=== PATIENT | male | born 1985 | race Hispanic/Latino ===

== ENCOUNTER 2020-12-07 18:53 | Emergency (ER) | payer SELFPAY ==
[2020-12-07 20:00] VITALS: BP 118/68
--- NOTE | 2020-12-07 20:05 | Event Note ---
ED Screening Note Date of service: 12/07/20 Time: 20:05 ED Screening Note: 35-year-old male patient presents to the emergency department complaints of fever, diaphoresis, fatigue, generalized weakness, body aches, and nontraumatic headache starting 2 days ago. No known sick contacts. No current steroid or antibiotic use. Tachycardia noted in triage. General: Awake, appropriately interactive, no acute distress. Neck: Supple. Full range of motion intact. Cardiovascular: Normal peripheral perfusion. Pulmonary: No respiratory distress. Patient is speaking normally without use of accessory muscles. Skin: No apparent rashes or lesions. Neurological: No facial asymmetry. Speech is clear. Follows commands. Patient is alert and oriented. Musculoskeletal: Moves all four extremities spontaneously with normal range of motion. Psych: Cooperative. Appropriate mood and affect. I have greeted and performed a focused rapid initial assessment of this patient. A comprehensive ED assessment and evaluation of the patient, analysis of all test results, and completion of the medical decision-making process will be conducted by additional ED providers. This initial assessment/diagnostic orders/clinical plan/treatment(s) is/are subject to change based on patients health status, clinical progression and re-assessment. Further treatment and workup at subsequent clinical provider's discretion. Patient/guardian urged not to elope from the ED as their condition may be serious if not clinically assessed and managed.
[2020-12-07 20:25] LABS: Basophils % (Auto) 1.4 % (0.0-1.8); Eosinophils % (Auto) 0.2 % (0.0-4.3); Hematocrit 44.2 % (35.5-45.6); Lymphocytes # (Auto) 0.5 K/mm3 (1.2-5.4); Lymphocytes % (Auto) 19.6 % (13.4-35.0); Mean Corpuscular HGB Conc 34 % (32-34); Mean Corpuscular Volume 85 fl (84-94); Monocytes # (Auto) 0.3 K/mm3 (0.0-0.8); Monocytes % (Auto) 10.2 % (0.0-7.3); Platelet Count 126 K/mm3 (140-440); Red Blood Count 5.19 M/mm3 (3.65-5.03); Red Cell Distribution Width 13.3 % (13.2-15.2)
--- NOTE | 2020-12-07 20:30 | XRay Report ---
CHEST 2 VIEWS INDICATION / CLINICAL INFORMATION: dizziness/fatigue/tachycardia. COMPARISON: None available. FINDINGS: SUPPORT DEVICES: None. HEART / MEDIASTINUM: No significant abnormality. LUNGS / PLEURA: No significant pulmonary or pleural abnormality. No pneumothorax. ADDITIONAL FINDINGS: No significant additional findings. IMPRESSION: 1. No acute findings. Signer Name: Oscar Morrison MD Signed: 12/07/2020 8:25 PM Workstation Name: [id number]
[2020-12-07 20:48] LABS: Alanine Aminotransferase 43 units/L (7-56); Albumin 3.6 g/dL (3.9-5); BUN/Creatinine Ratio 8; Blood Urea Nitrogen 7 mg/dL (9-20); Calcium 8.4 mg/dL (8.4-10.2); Hemolysis Index 11
[2020-12-07] MEDS ORDERED: AZITHROMYCIN 250 MG TAB PO ONE (21:10)
[2020-12-07] MEDS ORDERED: ACETAMINOPHEN 500 MG TAB PO ONE (21:10)
[2020-12-07] MEDS ORDERED: SODIUM CHLORIDE 0.9% 1000 ML 1,000 ML IV ONE (21:10)
--- NOTE | 2020-12-07 21:11 | Emergency Department Report ---
ED General Adult HPI - General Chief complaint: Upper Respiratory Infection Stated complaint: BODY ACHES Source: patient Mode of arrival: Ambulatory Limitations: No Limitations - History of Present Illness Initial comments: Pt is a 35-year-old male patient presents to the emergency department complaints of fever, diaphoresis, fatigue, generalized weakness, body aches, and nontraumatic headache starting 2 days ago. No known sick contacts. No current steroid or antibiotic use. pt denies suspicious contacts , pt is tolerating po intake without vomiting, does endorse nausea. - Related Data Previous Rx's Medication Instructions Recorded Last Taken Type Acetaminophen [Acetaminophen TAB] 1,000 mg PO Q6HR PRN #30 tablet 12/07/20 Unknown Rx Albuterol Mdi (or & Nicu Only) 2 puff IH QID PRN #8.5 gram 12/07/20 Unknown Rx [ProAir HFA Inhaler] Azithromycin 500 mg PO DAILY #5 tablet 12/07/20 Unknown Rx dexAMETHasone [Decadron] 4 mg PO BID 3 Days #6 tablet 12/07/20 Unknown Rx Allergies Allergy/AdvReac Type Severity Reaction Status Date / Time No Known Allergies Allergy Unverified 12/07/20 20:00 ED Review of Systems ROS: Stated complaint: BODY ACHES Other details as noted in HPI Constitutional: chills, malaise Eyes: denies: eye pain, eye discharge, vision change ENT: throat pain, congestion. denies: ear pain Respiratory: cough (thick yellow ). denies: shortness of breath, wheezing Cardiovascular: chest pain (right anterior lateral chest wall pain with cough ) Endocrine: no symptoms reported Gastrointestinal: nausea, diarrhea. denies: abdominal pain, vomiting, constipation, melena Genitourinary: denies: urgency, dysuria, frequency, hematuria, discharge Musculoskeletal: denies: back pain, joint swelling, arthralgia Skin: denies: rash, lesions Neurological: headache. denies: numbness, paresthesias, confusion, vertigo Psychiatric: denies: anxiety, depression Hematological/Lymphatic: as per HPI ED Past Medical Hx - Past Medical History Previous Medical History?: No - Surgical History Past Surgical History?: No - Medications Home Medications: Home Medications Medication Instructions Recorded Confirmed Last Taken Type Acetaminophen [Acetaminophen TAB] 1,000 mg PO Q6HR PRN #30 tablet 12/07/20 Unknown Rx Albuterol Mdi (or & Nicu Only) 2 puff IH QID PRN #8.5 gram 12/07/20 Unknown Rx [ProAir HFA Inhaler] Azithromycin 500 mg PO DAILY #5 tablet 12/07/20 Unknown Rx dexAMETHasone [Decadron] 4 mg PO BID 3 Days #6 tablet 12/07/20 Unknown Rx ED Physical Exam - General Limitations: No Limitations General appearance: alert - Head Head exam: Present: normocephalic, normal inspection - Eye Eye exam: Present: PERRL, EOMI Pupils: Present: normal accommodation - ENT ENT exam: Present: normal orophraynx, mucous membranes moist, TM's normal bilaterally, normal external ear exam - Neck Neck exam: Present: normal inspection, full ROM. Absent: tenderness, meningismus, lymphadenopathy - Respiratory Respiratory exam: Present: chest wall tenderness (right anterior lateral ). Absent: wheezes, rales, rhonchi, stridor - Cardiovascular Cardiovascular Exam: Present: regular rate, normal rhythm, normal heart sounds. Absent: systolic murmur, diastolic murmur, rubs, gallop - GI/Abdominal GI/Abdominal exam: Present: soft, normal bowel sounds. Absent: distended, tenderness, guarding, rebound, rigid, bruit, hernia - Rectal Rectal exam: Present: deferred - Extremities Exam Extremities exam: Present: normal inspection, full ROM, normal capillary refill. Absent: tenderness - Back Exam Back exam: Present: normal inspection, full ROM. Absent: tenderness, CVA tenderness (R), CVA tenderness (L) - Neurological Exam Neurological exam: Present: alert, oriented X3, CN II-XII intact, normal gait - Expanded Neurological Exam Expanded Patient oriented to: Present: person, place, time Motor strength exam: RUE: 5, LUE: 5, RLE: 5, LLE: 5 Best Eye Response (Carmel): (4) open spontaneously Best Motor Response (Carmel): (6) obeys commands Best Verbal Response (Carmel): (5) oriented Maikol Total: 15 - Psychiatric Psychiatric exam: Present: normal affect, normal mood - Skin Skin exam: Present: warm, dry, intact, normal color. Absent: rash ED Course Vital Signs 12/07/20 12/07/20 19:58 21:47 Temperature 98.2 F Pulse Rate 107 H Respiratory 18 18 Rate Blood Pressure 118/68 [Right] O2 Sat by Pulse 95 Oximetry ED Medical Decision Making - Lab Data Result diagrams: 12/07/20 20:10 12/07/20 20:10 - Radiology Data Radiology results: report reviewed, image reviewed Ordering Physician: SEDRICK WILLARD Date of Service: 12/07/20 Procedure(s): XR chest routine 2V Accession Number(s): [id number] cc: SEDRICK WILLARD Fluoro Time In Minutes: CHEST 2 VIEWS INDICATION / CLINICAL INFORMATION: dizziness/fatigue/tachycardia. COMPARISON: None available. FINDINGS: SUPPORT DEVICES: None. HEART / MEDIASTINUM: No significant abnormality LUNGS / PLEURA: No significant pulmonary or pleural abnormality. No pn eumothorax. ADDITIONAL FINDINGS: No significant additional findings. IMPRESSION: 1. No acute findings. Signer Name: Oscar Dumont MD Signed: 12/07/2020 8:25 PM Workstation Name: [id number] Transcribed By: CW Dictated By: ZEKE DUMONT MD Electronically Authenticated By: ZEKE DUMONT MD Signed Date/Time: 12/07/202024 DD/ 24 TD/TT: - Medical Decision Making Patient advises symptoms are improved. Chest x-ray is normal no infiltrates no opacities. Patient is currently tolerating p.o. intake without nausea vomiting. Patient will be DC'd to home, with prescriptions, will hydrate as directed, given PUI instructions, patient verbalized agreement and understanding with discharge plan will follow up with primary care doctor in 2 to 3 days. Patient is currently alert oriented x3 amatory with steady gait with no acute distress at this time. Critical care attestation.: If time is entered above; I have spent that time in minutes in the direct care of this critically ill patient, excluding procedure time. ED Disposition Clinical Impression: Bronchitis, Person under investigation for COVID-19 Disposition: DC-01 TO HOME OR SELFCARE Is pt being admited?: No Does the pt Need Aspirin: No Condition: Stable Instructions: Chronic Bronchitis (ED), Viral Respiratory Infection Test, COVID- 19 Additional Instructions: quarantine for next 7-10 days as directed, hydrate as directed, take medications as directed , return to emergency if symptoms worsen. follow with your doctor in 2-3 days. Prescriptions: Acetaminophen [Acetaminophen TAB] 1,000 mg PO Q6HR PRN #30 tablet PRN Reason: pain fever Azithromycin 500 mg PO DAILY #5 tablet dexAMETHasone [Decadron] 4 mg PO BID 3 Days #6 tablet Albuterol Mdi (or & Nicu Only) [ProAir HFA Inhaler] 2 puff IH QID PRN #8.5 gram PRN Reason: Shortness Of Breath Referrals: ESTRELLITA COVINGTON MD [Staff Physician] - 3-5 Days Forms: Work/School Release Form(ED) Time of Disposition: 23:18
== END 2020-12-07 23:30 | disposition home or self-care (01) ==
LOC: ED 18:53
DX: J40 Bronchitis, not specified as acute or chronic (principal); Z20.822 Contact with and (suspected) exposure to COVID-19; Z79.899 Other long term (current) drug therapy
CPT/HCPCS: 36415; 71046; 80053; 82550; 83735; 84484; 85025; 96360; 99284; J7030

== ENCOUNTER 2020-12-23 14:14 | Inpatient (IN) | payer OTHER, SELFPAY ==
[2020-12-23 16:05] LABS: Basophils % (Auto) 0.3 % (0.0-1.8); Eosinophils # (Auto) 0.1 K/mm3 (0.0-0.4); Eosinophils % (Auto) 0.9 % (0.0-4.3); Hematocrit 36.1 % (35.5-45.6); Hemoglobin 12.6 gm/dl (11.8-15.2); Lymphocytes # (Auto) 1.9 K/mm3 (1.2-5.4); Mean Corpuscular HGB Conc 35 % (32-34); Mean Corpuscular Volume 85 fl (84-94); Monocytes % (Auto) 7.4 % (0.0-7.3); Platelet Count 285 K/mm3 (140-440); Red Blood Count 4.24 M/mm3 (3.65-5.03); Red Cell Distribution Width 13.1 % (13.2-15.2)
[2020-12-23 16:19] LABS: Alanine Aminotransferase 63 units/L (7-56); BUN/Creatinine Ratio 25; Blood Urea Nitrogen 20 mg/dL (9-20); Calcium 8.6 mg/dL (8.4-10.2); Hemolysis Index 0
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
--- NOTE | 2020-12-23 17:18 | Vascular Lab Report ---
VL venous duplex LE RT INDICATION / CLINICAL INFORMATION: swelling and pain. TECHNIQUE: Duplex doppler imaging was performed using venous compression and other maneuvers. COMPARISON: None available. FINDINGS/IMPRESSION: There is a deep venous thrombosis seen within the proximal superficial femoral vein. Otherwise, no th rombus is seen in the right lower extremity. Signer Name: Norm Carter MD Signed: 12/23/2020 5:13 PM Workstation Name: [id number]
[2020-12-23] MEDS ORDERED: ENOXAPARIN 100 MG/1 ML INJ SUB-Q STA (17:30)
[2020-12-23] MEDS ORDERED: ACETAMINOPHEN 500 MG TAB PO ONE (17:30)
[2020-12-23] MEDS ORDERED: LACTATED RINGERS 2,000 ML IV ONE (17:30)
[2020-12-23] MEDS ORDERED: diazePAM 10 MG/2 ML SYRINGE IV ONE (17:30)
[2020-12-23] MEDS ORDERED: CLINDAMYCIN 600 MG/50 mL 600 MG/50 ML BAG IV ONE (18:34)
[2020-12-23 18:50] LABS: INR 1.08 (0.87-1.13)
[2020-12-23 18:51] LABS: Partial Thromboplastin Time 36.2 Sec. (24.2-36.6)
[2020-12-23 19:06] LABS: Hepatitis B Surface Antigen Non-Reactive (Negative); Hepatitis C Virus Antibody Non-Reactive (NonReactive)
--- NOTE | 2020-12-23 19:39 | Cat Scan Report ---
CTA CHEST WITH CONTRAST INDICATION / CLINICAL INFORMATION: tachycardia, fever, hemoptysis, dvt. TECHNIQUE: Axial CT images were obtained through the chest after injection of 100 mL Omnipaque 350 IV contrast. 3 plane MIP and/or 3D reconstructions were produced. All CT scans at this location are per formed using CT dose reduction for ALARA by means of automated exposure control. COMPARISON: None available. FINDINGS: PULMONARY ARTERIES: No pulmonary emboli. THORACIC AORTA: No significant abnormality. HEART: No significant abnormality. CORONARY ARTERY CALCIFICATION: None. MEDIASTINUM / ROBERTH: No significant abnormality. PLEURA: No pleural effusion. No pneumothorax. LUNGS: No acute air space or interstitial disease. ADDITIONAL FINDINGS: None. UPPER ABDOMEN: No acute findings. SKELETAL STRUCTURES: No significant osseous abnormality. IMPRESSION: 1. No CT evidence for pulmonary embolism. 2. No acute findings. Signer Name: Taylor Ceja MD Signed: 12/23/2020 7:35 PM Workstation Name: [id number]
[2020-12-23] MEDS ORDERED: HYDROmorphone 1 MG/1 ML INJ IV ONE (20:31)
[2020-12-23] MEDS: HYDROmorphone 1 MG/1 ML INJ IV PRN (21:48)
[2020-12-23] MEDS ORDERED: diphenhydrAMINE 50 MG/ML VIAL IV ONE (23:44)
[2020-12-24 00:15] LABS: Bilirubin,Urine NEG (Negative); Blood,Urine NEG (Negative); Color,Urine Yellow (Yellow); Mucus,Urine FEW /HPF; Protein,Urine <15 mg/dL mg/dL (Negative); Urobilinogen,Urine < 2.0 mg/dL (<2.0)
[2020-12-24 00:24] LABS: Amphetamine Screen,Urine PRESUMPTIVE POSITIVE; Benzodiazepines Screen,Urine PRESUMPTIVE NEGATIVE; Cannabinoid Screen,Urine PRESUMPTIVE NEGATIVE; Cocaine Screen,Urine PRESUMPTIVE NEGATIVE; Methadone Screen,Urine PRESUMPTIVE NEGATIVE; Opiate Screen,Urine PRESUMPTIVE NEGATIVE
--- NOTE | 2020-12-24 00:36 | History and Physical Report ---
History of Present Illness Date of examination: 12/23/20 Date of admission: 12/23/20 20:53 Chief complaint: Redness of the right lower extremity History of present illness: 35-year-old male with history of asthma and methamphetamine use comes in for right lower extremity redness pain and swelling. Patient also has a small ulcer on the penis for the last 1 or 2 weeks. Patient is a poor historian. Patient has male sex to male(apparently homosexuality should not be used). Patient noticed 2 small ulcers near the gonzales of the glans penis. Penis ulcers. No fever or chills. His main complaint is redness of right lower extremity associated with pain. No fever or chills. No penile discharge. Redness started 1 day ago. - Past Medical History Previous Medical History?: No - Surgical History Past Surgical History?: No - Social History Smoking Status: Current Every Day Smoker - Medications Home Medications: Home Medications Medication Instructions Recorded Confirmed Last Taken Type Acetaminophen [Acetaminophen TAB] 1,000 mg PO Q6HR PRN #30 tablet 12/07/20 Unknown Rx Albuterol Mdi (or & Nicu Only) 2 puff IH QID PRN #8.5 gram 12/07/20 Unknown Rx [ProAir HFA Inhaler] Azithromycin 500 mg PO DAILY #5 tablet 12/07/20 Unknown Rx dexAMETHasone [Decadron] 4 mg PO BID 3 Days #6 tablet 12/07/20 Unknown Rx Review of Systems ROS: Stated complaint: RIGHT LEG INJURY Other details as noted in HPI Constitutional: fever, malaise, weakness Eyes: denies: eye discharge ENT: congestion Respiratory: cough, other (Hemoptysis) Cardiovascular: denies: chest pain Gastrointestinal: denies: nausea, vomiting, hematemesis, melena, hematochezia Genitourinary: Chan[place] on the penis Musculoskeletal: arthralgia, myalgia Skin: rash, right lower extremity Neurological: denies: headache, confusion, abnormal gait Psychiatric: anxiety Hematological/Lymphatic: denies: easy bleeding Medications and Allergies Allergies Allergy/AdvReac Type Severity Reaction Status Date / Time No Known Allergies Allergy Unverified 12/07/20 20:00 Home Medications Medication Instructions Recorded Confirmed Last Taken Type Acetaminophen [Acetaminophen TAB] 1,000 mg PO Q6HR PRN #30 tablet 12/07/20 Unknown Rx Albuterol Mdi (or & Nicu Only) 2 puff IH QID PRN #8.5 gram 12/07/20 Unknown Rx [ProAir HFA Inhaler] Azithromycin 500 mg PO DAILY #5 tablet 12/07/20 Unknown Rx dexAMETHasone [Decadron] 4 mg PO BID 3 Days #6 tablet 12/07/20 Unknown Rx Active Meds: Active Medications Hydromorphone HCl (Hydromorphone 1 Mg/1 Ml Inj) 0.5 mg IV Q3H PRN PRN Reason: Pain , Severe (7-10) Last Admin: 12/23/20 21:48 Dose: 0.5 mg Documented by: Exam - Constitutional Vitals: Temp Pulse Resp BP Pulse Ox 98.7 F 98 H 13 106/66 100 12/24/20 00:23 12/23/20 23:02 12/23/20 23:02 12/23/20 23:02 12/23/20 23:02 General appearance: Present: no acute distress, well-nourished - EENT Eyes: Present: PERRL ENT: hearing intact, clear oral mucosa - Neck Neck: Present: supple, normal ROM - Respiratory Respiratory effort: normal Respiratory: bilateral: CTA - Cardiovascular Heart rate: 78 Rhythm: regular Heart Sounds: Present: S1 & S2. Absent: rub, click - Extremities Extremities: no ischemia, pulses symmetrical, No edema Extremity abnormal: erythema (Right lower extremity from ankle up to the mid calf region. No ulcers.) Peripheral Pulses: within normal limits - Abdominal General gastrointestinal: Present: soft, non-tender, non-distended, normal bowel sounds Male genitourinary: Present: asymmetrical (Penile chancres x2. Painless.) - Integumentary Integumentary: Present: clear, warm, dry - Musculoskeletal Musculoskeletal: gait normal, strength equal bilaterally - Psychiatric Psychiatric: appropriate mood/affect, intact judgment & insight - Neurologic Neurologic: CNII-XII intact, moves all extremities Results - Labs CBC & Chem 7: 12/23/20 15:32 12/23/20 15:32 Labs: Laboratory Last Values WBC 13.5 K/mm3 (4.5-11.0) H 12/23/20 15:32 RBC 4.24 M/mm3 (3.65-5.03) 12/23/20 15:32 Hgb 12.6 gm/dl (11.8-15.2) 12/23/20 15:32 Hct 36.1 % (35.5-45.6) 12/23/20 15:32 MCV 85 fl (84-94) 12/23/20 15:32 MCH 30 pg (28-32) 12/23/20 15:32 MCHC 35 % (32-34) H 12/23/20 15:32 RDW 13.1 % (13.2-15.2) L 12/23/20 15:32 Plt Count 285 K/mm3 (140-440) 12/23/20 15:32 Lymph % (Auto) 14.0 % (13.4-35.0) 12/23/20 15:32 [place] % (Auto) 7.4 % (0.0-7.3) H 12/23/20 15:32 Eos % (Auto) 0.9 % (0.0-4.3) 12/23/20 15:32 Baso % (Auto) 0.3 % (0.0-1.8) 12/23/20 15:32 Lymph # (Auto) 1.9 K/mm3 (1.2-5.4) 12/23/20 15:32 [place] # (Auto) 1.0 K/mm3 (0.0-0.8) H 12/23/20 15:32 Eos # (Auto) 0.1 K/mm3 (0.0-0.4) 12/23/20 15:32 Baso # (Auto) 0.0 K/mm3 (0.0-0.1) 12/23/20 15:32 Seg Neutrophils % 77.4 % (40.0-70.0) H 12/23/20 15:32 Seg Neutrophils # 10.5 K/mm3 (1.8-7.7) H 12/23/20 15:32 PT 13.8 Sec. (12.2-14.9) 12/23/20 17:52 INR 1.08 (0.87-1.13) 12/23/20 17:52 APTT 36.2 Sec. (24.2-36.6) 12/23/20 17:52 Sodium 131 mmol/L (137-145) L 12/23/20 15:32 Potassium 4.1 mmol/L (3.6-5.0) 12/23/20 15:32 Chloride 95.3 mmol/L (98-107) L 12/23/20 15:32 Carbon Dioxide 26 mmol/L (22-30) 12/23/20 15:32 Anion Gap 14 mmol/L 12/23/20 15:32 BUN 20 mg/dL (9-20) 12/23/20 15:32 Creatinine 0.8 mg/dL (0.8-1.3) 12/23/20 15:32 Estimated GFR > 60 ml/min 12/23/20 15:32 BUN/Creatinine Ratio 25 % 12/23/20 15:32 Glucose 82 mg/dL (75-100) 12/23/20 15:32 Lactic Acid 0.80 mmol/L (0.7-2.0) 12/23/20 15:32 Calcium 8.6 mg/dL (8.4-10.2) 12/23/20 15:32 Magnesium 1.80 mg/dL (1.7-2.3) 12/23/20 16:59 Total Bilirubin 0.90 mg/dL (0.1-1.2) 12/23/20 15:32 AST 30 units/L (5-40) 12/23/20 15:32 ALT 63 units/L (7-56) H 12/23/20 15:32 Alkaline Phosphatase 95 units/L (35-129) 12/23/20 15:32 Total Creatine Kinase 233 units/L (55-170) H 12/23/20 16:59 Total Protein 7.0 g/dL (6.3-8.2) 12/23/20 15:32 Albumin 4.0 g/dL (3.9-5) 12/23/20 15:32 Albumin/Globulin Ratio 1.3 % 12/23/20 15:32 TSH 0.847 mlU/mL (0.270-4.200) 12/23/20 17:52 Urine Color Yellow (Yellow) 12/23/20 23:59 Urine Turbidity Clear (Clear) 12/23/20 23:59 Urine pH 6.0 (5.0-7.0) 12/23/20 23:59 Ur Specific [place] 1.029 (1.003-1.030) 12/23/20 23:59 Urine Protein <15 mg/dl mg/dL (Negative) 12/23/20 23:59 Urine Glucose (UA) Neg mg/dL (Negative) 12/23/20 23:59 Urine Ketones Tr mg/dL (Negative) 12/23/20 23:59 Urine Blood Neg (Negative) 12/23/20 23:59 Urine Nitrite Neg (Negative) 12/23/20 23:59 Urine Bilirubin Neg (Negative) 12/23/20 23:59 Urine Urobilinogen < 2.0 mg/dL (<2.0) 12/23/20 23:59 Ur Leukocyte Esterase Neg (Negative) 12/23/20 23:59 Urine WBC (Auto) 1.0 /HPF (0.0-6.0) 12/23/20 23:59 Urine RBC (Auto) 1.0 /HPF (0.0-6.0) 12/23/20 23:59 Urine Mucus Few /HPF 12/23/20 23:59 Salicylates < 0.3 mg/dL (2.8-20.0) L 12/23/20 17:52 Acetaminophen 5.0 ug/mL (10.0-30.0) L 12/23/20 17:52 Ur Amphetamines Screen Presumptive positive 12/23/20 23:59 Syphilis IgG Antibody Nonreactive (NonReactive) 12/23/20 17:52 Hepatitis A IgM Ab Non-reactive (NonReactive) 12/23/20 17:52 Hep Bs Antigen Non-reactive (Negative) 12/23/20 17:52 Hep B Core IgM Ab Non-reactive (NonReactive) 12/23/20 17:52 Hepatitis C Antibody Non-reactive (NonReactive) 12/23/20 17:52 Microbiology: Microbiology 12/23/20 17:49 Peripheral/Venous Blood Culture - Preliminary Culture in Progress 12/23/20 17:52 Peripheral/Venous Blood Culture - Preliminary Culture in Progress Assessment and Plan Advance Directives: Yes (Full code) VTE prophylaxis?: Chemical Plan of care discussed with patient/family: Yes - Patient Problems (1) Cellulitis of right lower extremity Current Visit: Yes Status: Acute Plan to address problem: Patient initiated on ceftriaxone (2) Chancre Current Visit: Yes Status: Acute Plan to address problem: 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
[2020-12-24] MEDS ORDERED: oxyCODONE /ACETAMINOPHEN 5-325MG TAB PO PRN (00:44)
[2020-12-24] MEDS ORDERED: METOCLOPRAMIDE 10 MG/2 ML INJ IV PRN (00:44)
[2020-12-24] MEDS ORDERED: ACETAMINOPHEN 325 MG TAB PO PRN (00:44)
[2020-12-24] MEDS ORDERED: ONDANSETRON 4 MG/2 ML INJ IV PRN (00:44)
[2020-12-24] MEDS: HYDROmorphone 1 MG/1 ML INJ IV PRN (00:55)
[2020-12-24 01:37] LABS: Basophils # (Auto) 0.1 K/mm3 (0.0-0.1); Basophils % (Auto) 0.5 % (0.0-1.8); Eosinophils # (Auto) 0.2 K/mm3 (0.0-0.4); Eosinophils % (Auto) 2.3 % (0.0-4.3); Hematocrit 36.4 % (35.5-45.6); Hemoglobin 12.5 gm/dl (11.8-15.2); Lymphocytes # (Auto) 2.6 K/mm3 (1.2-5.4); Lymphocytes % (Auto) 24.2 % (13.4-35.0); Mean Corpuscular HGB Conc 34 % (32-34); Mean Corpuscular Volume 86 fl (84-94); Monocytes # (Auto) 0.9 K/mm3 (0.0-0.8); Monocytes % (Auto) 8.4 % (0.0-7.3); Platelet Count 291 K/mm3 (140-440); Red Blood Count 4.26 M/mm3 (3.65-5.03); Red Cell Distribution Width 13.7 % (13.2-15.2)
[2020-12-24 01:57] LABS: Alanine Aminotransferase 52 units/L (7-56); Albumin 3.6 g/dL (3.9-5); BUN/Creatinine Ratio 18; Blood Urea Nitrogen 14 mg/dL (9-20); Calcium 8.8 mg/dL (8.4-10.2); Hemolysis Index 15
[2020-12-24] MEDS: FAMOTIDINE 20 MG TAB PO SCH ×2 (10:49→21:07)
--- NOTE | 2020-12-24 11:44 | Progress Note ---
Assessment and Plan Assessment and plan: --PUI/high suspicion for Covid Current Visit: Yes Status: Acute Plan to address problem: isolation, gonzales PCR requested, ID already consulted. Patient had low-grade fever high risk --Right lower extremity DVT; Current Visit: Yes Status: Acute Plan to address problem: Lovenox 1 mg/kg body weight every 12 hours Will transition to Eliquis once patient is more stable Elevate the limb. CTA negative for PE --Sepsis secondary to cellulitis RLE Current Visit: Yes Status: Acute. Plan to address problem: Tachycardia, fever, leukocytosis, cellulitis IV antibiotics, elevate the limb, follow cultures -- Cellulitis of right lower extremity Current Visit: Yes Status: Acute Plan to address problem: IV antibiotics elevate the limb Follow cultures -- Chancre/STD Current Visit: Yes Status: Acute Plan to address problem: Follow work-up RPR and HIV requested Management per ID -- Methamphetamine use Current Visit: Yes Status: Acute Plan to address problem: Advised to quit recreational drug use --DVT prophylaxis Current Visit: Yes Status: Acute Plan to address problem: On Lovenox[patient has DVT] History Interval history: I have seen and examined the patient at the bedside Patient's chart and medications reviewed Patient complains of leg pain and swelling Vital signs noted Hospitalist Physical - Constitutional Vitals: Temp Pulse Resp BP Pulse Ox 98.6 F 96 H 18 108/65 99 12/24/20 03:29 12/24/20 03:29 12/24/20 03:29 12/24/20 03:29 12/24/20 03:29 General appearance: Present: mild distress, well-nourished - EENT Eyes: Present: PERRL, EOM intact - Neck Neck: Present: supple, normal ROM - Respiratory Respiratory effort: normal Respiratory: bilateral: diminished, negative: rales, rhonchi, wheezing - Cardiovascular Rhythm: regular Heart Sounds: Present: S1 & S2 - Extremities Extremities: no ischemia, abnormal (RLE cellulitis /DVT) - Abdominal General gastrointestinal: soft, non-tender, non-distended, normal bowel sounds - Integumentary Integumentary: Present: clear, warm - Psychiatric Psychiatric: appropriate mood/affect, cooperative - Neurologic Neurologic: CNII-XII intact, moves all extremities Results - Labs CBC & Chem 7: 12/24/20 01:06 12/24/20 01:06 Labs: Laboratory Last Values WBC 10.9 K/mm3 (4.5-11.0) 12/24/20 01:06 RBC 4.26 M/mm3 (3.65-5.03) 12/24/20 01:06 Hgb 12.5 gm/dl (11.8-15.2) 12/24/20 01:06 Hct 36.4 % (35.5-45.6) 12/24/20 01:06 MCV 86 fl (84-94) 12/24/20 01:06 MCH 29 pg (28-32) 12/24/20 01:06 MCHC 34 % (32-34) 12/24/20 01:06 RDW 13.7 % (13.2-15.2) 12/24/20 01:06 Plt Count 291 K/mm3 (140-440) 12/24/20 01:06 Lymph % (Auto) 24.2 % (13.4-35.0) 12/24/20 01:06 [place] % (Auto) 8.4 % (0.0-7.3) H 12/24/20 01:06 Eos % (Auto) 2.3 % (0.0-4.3) 12/24/20 01:06 Baso % (Auto) 0.5 % (0.0-1.8) 12/24/20 01:06 Lymph # (Auto) 2.6 K/mm3 (1.2-5.4) 12/24/20 01:06 [place] # (Auto) 0.9 K/mm3 (0.0-0.8) H 12/24/20 01:06 Eos # (Auto) 0.2 K/mm3 (0.0-0.4) 12/24/20 01:06 Baso # (Auto) 0.1 K/mm3 (0.0-0.1) 12/24/20 01:06 Seg Neutrophils % 64.6 % (40.0-70.0) 12/24/20 01:06 Seg Neutrophils # 7.1 K/mm3 (1.8-7.7) 12/24/20 01:06 PT 13.8 Sec. (12.2-14.9) 12/23/20 17:52 INR 1.08 (0.87-1.13) 12/23/20 17:52 APTT 36.2 Sec. (24.2-36.6) 12/23/20 17:52 Sodium 137 mmol/L (137-145) 12/24/20 01:06 Potassium 3.7 mmol/L (3.6-5.0) 12/24/20 01:06 Chloride 99.0 mmol/L (98-107) 12/24/20 01:06 Carbon Dioxide 29 mmol/L (22-30) 12/24/20 01:06 Anion Gap 13 mmol/L 12/24/20 01:06 BUN 14 mg/dL (9-20) 12/24/20 01:06 Creatinine 0.8 mg/dL (0.8-1.3) 12/24/20 01:06 Estimated GFR > 60 ml/min 12/24/20 01:06 BUN/Creatinine Ratio 18 % 12/24/20 01:06 Glucose 74 mg/dL (75-100) L 12/24/20 01:06 Hemoglobin A1c 5.5 % (4-6) 12/24/20 01:06 Lactic Acid 0.80 mmol/L (0.7-2.0) 12/23/20 15:32 Calcium 8.8 mg/dL (8.4-10.2) 12/24/20 01:06 Magnesium 1.80 mg/dL (1.7-2.3) 12/23/20 16:59 Total Bilirubin 0.80 mg/dL (0.1-1.2) 12/24/20 01:06 AST 26 units/L (5-40) 12/24/20 01:06 ALT 52 units/L (7-56) 12/24/20 01:06 Alkaline Phosphatase 93 units/L (35-129) 12/24/20 01:06 Total Creatine Kinase 233 units/L (55-170) H 12/23/20 16:59 Total Protein 7.1 g/dL (6.3-8.2) 12/24/20 01:06 Albumin 3.6 g/dL (3.9-5) L 12/24/20 01:06 Albumin/Globulin Ratio 1.0 % 12/24/20 01:06 TSH 0.847 mlU/mL (0.270-4.200) 12/23/20 17:52 Urine Color Yellow (Yellow) 12/23/20 23:59 Urine Turbidity Clear (Clear) 12/23/20 23:59 Urine pH 6.0 (5.0-7.0) 12/23/20 23:59 Ur Specific [place] 1.029 (1.003-1.030) 12/23/20 23:59 Urine Protein <15 mg/dl mg/dL (Negative) 12/23/20 23:59 Urine Glucose (UA) Neg mg/dL (Negative) 12/23/20 23:59 Urine Ketones Tr mg/dL (Negative) 12/23/20 23:59 Urine Blood Neg (Negative) 12/23/20 23:59 Urine Nitrite Neg (Negative) 12/23/20 23:59 Urine Bilirubin Neg (Negative) 12/23/20 23:59 Urine Urobilinogen < 2.0 mg/dL (<2.0) 12/23/20 23:59 Ur Leukocyte Esterase Neg (Negative) 12/23/20 23:59 Urine WBC (Auto) 1.0 /HPF (0.0-6.0) 12/23/20 23:59 Urine RBC (Auto) 1.0 /HPF (0.0-6.0) 12/23/20 23:59 Urine Mucus Few /HPF 12/23/20 23:59 Salicylates < 0.3 mg/dL (2.8-20.0) L 12/23/20 17:52 Urine Opiates Screen Presumptive negative 12/23/20 23:59 Urine Methadone Screen Presumptive negative 12/23/20 23:59 Acetaminophen 5.0 ug/mL (10.0-30.0) L 12/23/20 17:52 Ur Barbiturates Screen Presumptive negative 12/23/20 23:59 Ur Phencyclidine Scrn Presumptive negative 12/23/20 23:59 Ur Amphetamines Screen Presumptive positive 12/23/20 23:59 U Benzodiazepines Scrn Presumptive negative 12/23/20 23:59 Urine Cocaine Screen Presumptive negative 12/23/20 23:59 U Marijuana (THC) Screen Presumptive negative 12/23/20 23:59 Drugs of Abuse Note Disclamer 12/23/20 23:59 Syphilis IgG Antibody Nonreactive (NonReactive) 12/23/20 17:52 Hepatitis A IgM Ab Non-reactive (NonReactive) 12/23/20 17:52 Hep Bs Antigen Non-reactive (Negative) 12/23/20 17:52 Hep B Core IgM Ab Non-reactive (NonReactive) 12/23/20 17:52 Hepatitis C Antibody Non-reactive (NonReactive) 12/23/20 17:52 Microbiology: Microbiology 12/23/20 17:49 Peripheral/Venous Blood Culture - Preliminary Culture in Progress 12/23/20 17:52 Peripheral/Venous Blood Culture - Preliminary Culture in Progress [place]/IV: Voiding Method Toilet Active Medications - Current Medications Current Medications: Generic Name Dose Route Start Last Admin Trade Name Freq PRN Reason Stop Dose Admin Acetaminophen 650 mg 12/24/20 00:44 Acetaminophen 325 Mg Tab PO Q4H PRN Pain MILD(1-3)/Fever >100.5/MEAN Famotidine 20 mg 12/24/20 10:00 12/24/20 10:49 Famotidine 20 Mg Tab PO 20 mg BID REEMA Administration Hydromorphone HCl 0.5 mg 12/23/20 21:30 12/24/20 00:55 Hydromorphone 1 Mg/1 Ml Inj IV 0.5 mg Q3H PRN Administration Pain , Severe (7-10) Levofloxacin/Dextrose 750 mg in 150 mls @ 100 mls/hr 12/24/20 10:00 12/24/20 10:49 Levaquin 750mg/150ml IV 100 mls/hr Q24HR REEMA Administration Protocol Metoclopramide HCl 10 mg 12/24/20 00:44 Metoclopramide 10 Mg/2 Ml Inj IV Q6H PRN Nausea And Vomiting Ondansetron HCl 4 mg 12/24/20 00:44 Ondansetron 4 Mg/2 Ml Inj IV Q8H PRN Nausea And Vomiting Oxycodone/Acetaminophen 1 tab 12/24/20 00:44 12/24/20 02:32 Oxycodone /Acetaminophen 5-325mg Tab PO 1 tab Q6H PRN Administration Pain, Moderate (4-6) Sodium Chloride 10 ml 12/24/20 10:00 12/24/20 10:49 Sodium Chloride 0.9% 10 Ml Flush Syringe IV 10 ml BID REEMA Administration Sodium Chloride 10 ml 12/24/20 00:44 Sodium Chloride 0.9% 10 Ml Flush Syringe IV PRN PRN LINE FLUSH
--- NOTE | 2020-12-24 13:13 | Consultation ---
History of Present Illness - Reason for Consult Consult date: 12/24/20 - History of Present Illness 35-year-old male past medical history asthma, methamphetamine abuse presented to the right lower extremity redness and pain. He also notes having a small ulcer on his penis for the past 1 to 2 weeks. Patient has a history of MSM. He is more concerned about the leg pain in the penis ulcers. Afebrile with a T-max of 100.1 with a white count of 10.9. White count was initially 13.5 on admission. Viral hepatitis and syphilis are negative normal renal function. Blood cultures no growth so far. Imaging personally reviewed: Chest CTA: No evidence of pulmonary motion, no acute pneumonia. Dopplers DVT in superficial femoral vein Review of systems: Deferred to reduce to the risk of transmission of COVID-19 Past History Past Medical History: other (See HPI) Past Surgical History: No surgical history Social history: no significant social history Family history: no significant family history Medications and Allergies Allergies Allergy/AdvReac Type Severity Reaction Status Date / Time No Known Allergies Allergy Unverified 12/07/20 20:00 Home Medications Medication Instructions Recorded Confirmed Last Taken Type Acetaminophen [Acetaminophen TAB] 1,000 mg PO Q6HR PRN #30 tablet 12/07/20 Unknown Rx Albuterol Mdi (or & Nicu Only) 2 puff IH QID PRN #8.5 gram 12/07/20 Unknown Rx [ProAir HFA Inhaler] Azithromycin 500 mg PO DAILY #5 tablet 12/07/20 Unknown Rx dexAMETHasone [Decadron] 4 mg PO BID 3 Days #6 tablet 12/07/20 Unknown Rx Active Meds: Active Medications Acetaminophen (Acetaminophen 325 Mg Tab) 650 mg PO Q4H PRN PRN Reason: Pain MILD(1-3)/Fever >100.5/MENA Famotidine (Famotidine 20 Mg Tab) 20 mg PO BID REEMA Last Admin: 12/24/20 10:49 Dose: 20 mg Documented by: Hydromorphone HCl (Hydromorphone 1 Mg/1 Ml Inj) 0.5 mg IV Q3H PRN PRN Reason: Pain , Severe (7-10) Last Admin: 12/24/20 00:55 Dose: 0.5 mg Documented by: Levofloxacin/Dextrose (Levaquin 750mg/150ml) 750 mg in 150 mls @ 100 mls/hr IV Q24HR REEMA; Protocol Last Admin: 12/24/20 10:49 Dose: 100 mls/hr Documented by: Metoclopramide HCl (Metoclopramide 10 Mg/2 Ml Inj) 10 mg IV Q6H PRN PRN Reason: Nausea And Vomiting Ondansetron HCl (Ondansetron 4 Mg/2 Ml Inj) 4 mg IV Q8H PRN PRN Reason: Nausea And Vomiting Oxycodone/Acetaminophen (Oxycodone /Acetaminophen 5-325mg Tab) 1 tab PO Q6H PRN PRN Reason: Pain, Moderate (4-6) Last Admin: 12/24/20 02:32 Dose: 1 tab Documented by: Sodium Chloride (Sodium Chloride 0.9% 10 Ml Flush Syringe) 10 ml IV BID [facility] Last Admin: 12/24/20 10:49 Dose: 10 ml Documented by: Sodium Chloride (Sodium Chloride 0.9% 10 Ml Flush Syringe) 10 ml IV PRN PRN PRN Reason: LINE FLUSH Physical Examination - Physical Exam Narrative exam: Physical exam deferred to reduce risk of transmission of COVID-19. Please refer to primary team's note. - Constitutional Vitals: Vital Signs Temp Pulse Resp BP Pulse Ox 98.6 F 96 H 18 108/65 99 12/24/20 03:29 12/24/20 03:29 12/24/20 03:29 12/24/20 03:29 12/24/20 03:29 Temperature -Last 24 Hours Temperature 98.6 F Temperature 98.5 F Temperature 98.7 F Temperature 100.1 F Results - Labs CBC & Chem 7: 12/24/20 01:06 12/24/20 01:06 Labs: Abnormal lab results 12/23/20 12/23/20 12/23/20 Range/Units 15:32 15:32 16:59 WBC 13.5 H (4.5-11.0) K/mm3 MCHC 35 H (32-34) % RDW 13.1 L (13.2-15.2) % [place] % (Auto) 7.4 H (0.0-7.3) % [place] # (Auto) 1.0 H (0.0-0.8) K/mm3 Seg Neutrophils % 77.4 H (40.0-70.0) % Seg Neutrophils # 10.5 H (1.8-7.7) K/mm3 Sodium 131 L (137-145) mmol/L Chloride 95.3 L (98-107) mmol/L Glucose (75-100) mg/dL ALT 63 H (7-56) units/L Total Creatine Kinase 233 H (55-170) units/L Albumin (3.9-5) g/dL Salicylates (2.8-20.0) mg/dL Acetaminophen (10.0-30.0) ug/mL 12/23/20 12/23/20 12/24/20 Range/Units 17:52 17:52 01:06 WBC (4.5-11.0) K/mm3 MCHC (32-34) % RDW (13.2-15.2) % [place] % (Auto) 8.4 H (0.0-7.3) % [place] # (Auto) 0.9 H (0.0-0.8) K/mm3 Seg Neutrophils % (40.0-70.0) % Seg Neutrophils # (1.8-7.7) K/mm3 Sodium (137-145) mmol/L Chloride (98-107) mmol/L Glucose (75-100) mg/dL ALT (7-56) units/L Total Creatine Kinase (55-170) units/L Albumin (3.9-5) g/dL Salicylates < 0.3 L (2.8-20.0) mg/dL Acetaminophen 5.0 L (10.0-30.0) ug/mL 12/24/20 Range/Units 01:06 WBC (4.5-11.0) K/mm3 MCHC (32-34) % RDW (13.2-15.2) % [place] % (Auto) (0.0-7.3) % [place] # (Auto) (0.0-0.8) K/mm3 Seg Neutrophils % (40.0-70.0) % Seg Neutrophils # (1.8-7.7) K/mm3 Sodium (137-145) mmol/L Chloride (98-107) mmol/L Glucose 74 L (75-100) mg/dL ALT (7-56) units/L Total Creatine Kinase (55-170) units/L Albumin 3.6 L (3.9-5) g/dL Salicylates (2.8-20.0) mg/dL Acetaminophen (10.0-30.0) ug/mL Assessment and Plan ID labs: Blood culture 12/23/2020 no growth Covid PCR pending HIV pending Viral hepatitis panel negative Syphilis IgG negative A/P: 35-year-old male past medical history asthma, methamphetamine abuse admitted for right lower extremity cellulitis #Acute sepsis: Present with tachycardia and leukocytosis. Likely secondary to RLE cellulitis #RLE cellulitis: With associated DVT and history of IVDA #DVT: Anticoagulation per primary #High risk sexual behavior/IVDA: Intermittent condom use, HIV pending. #Penile ulcer: Syphilis IgG negative, pending RPR. 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 Dr. Underwood taking over Friday MD [facility] O: [phone] F: [phone]
[2020-12-24] MEDS ORDERED: VANCOMYCIN PHARMACY TO DOSE IV SCH (14:00)
[2020-12-24] MEDS ORDERED: VANCOMYCIN 1,500 MG in SODIUM CHLORIDE 0.9% 500 ML 500 ML IV ONE (15:00)
[2020-12-24] MEDS: ENOXAPARIN SUB-Q SCH (21:07)
[2020-12-25] MEDS: VANCOMYCIN/NS 1 GM/250 ML 1 GM/250 ML BAG IV SCH ×2 (04:59→20:18)
[2020-12-25] MEDS: ENOXAPARIN SUB-Q SCH ×2 (09:58→21:28)
[2020-12-25] MEDS: FAMOTIDINE 20 MG TAB PO SCH ×2 (09:58→21:28)
--- NOTE | 2020-12-25 10:55 | Progress Note ---
Assessment and Plan Assessment and plan: --PUI/high suspicion for Covid Current Visit: Yes Status: Acute Plan to address problem: isolation, gonzales PCR requested, ID already consulted. Patient had low-grade fever high risk --Right lower extremity DVT; Current Visit: Yes Status: Acute Plan to address problem: Lovenox 1 mg/kg body weight every 12 hours Will transition to Eliquis once patient is more stable Elevate the limb. CTA negative for PE --Sepsis secondary to cellulitis RLE Current Visit: Yes Status: Acute. Plan to address problem: Tachycardia, fever, leukocytosis, cellulitis IV antibiotics, elevate the limb, follow cultures -- Cellulitis of right lower extremity Current Visit: Yes Status: Acute Plan to address problem: IV antibiotics elevate the limb Follow cultures -- [place] Current Visit: Yes Status: Acute Plan to address problem: Follow work-up RPR and HIV requested Management per ID -- Methamphetamine use Current Visit: Yes Status: Acute Plan to address problem: Advised to quit recreational drug use --DVT prophylaxis Current Visit: Yes Status: Acute Plan to address problem: On Lovenox[patient has DVT] Brief history 35-year-old male patient was admitted with right lower extremity trauma Swelling and tenderness, noted to have cellulitis venous Doppler study positive for DVT Started on Lovenox, transition to Eliquis from tomorrow, patient COVID-19 is negative Receiving IV antibiotics, ID following for evaluation chancre 12/25/2020; Lovenox for DVT, CTA chest negative for PE Transition to Eliquis from tomorrow morning, follow ID work-up COVID-19 test negative History Interval history: I have seen and examined the patient at the bedside this morning Patient's chart and medications reviewed Right lower extremity cellulitis, right lower extremity DVT On Lovenox, complains of mild pain Vital signs noted Hospitalist Physical - Constitutional Vitals: Temp Pulse Resp BP Pulse Ox 98.7 F 84 18 105/61 98 12/25/20 05:50 12/25/20 05:50 12/25/20 05:50 12/25/20 05:50 12/25/20 05:50 General appearance: Present: no acute distress, well-nourished - EENT Eyes: Present: PERRL, EOM intact - Neck Neck: Present: supple, normal ROM - Respiratory Respiratory effort: normal Respiratory: bilateral: diminished, rales, negative: rhonchi, wheezing - Cardiovascular Rhythm: regular Heart Sounds: Present: S1 & S2 - Extremities Extremities: no ischemia, abnormal (Right lower extremity swelling, erythema and tenderness/DVT) - Abdominal General gastrointestinal: soft, non-tender, non-distended - Integumentary Integumentary: Present: clear, warm - Psychiatric Psychiatric: appropriate mood/affect, cooperative - Neurologic Neurologic: CNII-XII intact, moves all extremities Results - Labs CBC & Chem 7: 12/24/20 01:06 12/24/20 01:06 Labs: Laboratory Last Values WBC 10.9 K/mm3 (4.5-11.0) 12/24/20 01:06 RBC 4.26 M/mm3 (3.65-5.03) 12/24/20 01:06 Hgb 12.5 gm/dl (11.8-15.2) 12/24/20 01:06 Hct 36.4 % (35.5-45.6) 12/24/20 01:06 MCV 86 fl (84-94) 12/24/20 01:06 MCH 29 pg (28-32) 12/24/20 01:06 MCHC 34 % (32-34) 12/24/20 01:06 RDW 13.7 % (13.2-15.2) 12/24/20 01:06 Plt Count 291 K/mm3 (140-440) 12/24/20 01:06 Lymph % (Auto) 24.2 % (13.4-35.0) 12/24/20 01:06 Centre % (Auto) 8.4 % (0.0-7.3) H 12/24/20 01:06 Eos % (Auto) 2.3 % (0.0-4.3) 12/24/20 01:06 Baso % (Auto) 0.5 % (0.0-1.8) 12/24/20 01:06 Lymph # (Auto) 2.6 K/mm3 (1.2-5.4) 12/24/20 01:06 Centre # (Auto) 0.9 K/mm3 (0.0-0.8) H 12/24/20 01:06 Eos # (Auto) 0.2 K/mm3 (0.0-0.4) 12/24/20 01:06 Baso # (Auto) 0.1 K/mm3 (0.0-0.1) 12/24/20 01:06 Seg Neutrophils % 64.6 % (40.0-70.0) 12/24/20 01:06 Seg Neutrophils # 7.1 K/mm3 (1.8-7.7) 12/24/20 01:06 PT 13.8 Sec. (12.2-14.9) 12/23/20 17:52 INR 1.08 (0.87-1.13) 12/23/20 17:52 APTT 36.2 Sec. (24.2-36.6) 12/23/20 17:52 Sodium 137 mmol/L (137-145) 12/24/20 01:06 Potassium 3.7 mmol/L (3.6-5.0) 12/24/20 01:06 Chloride 99.0 mmol/L (98-107) 12/24/20 01:06 Carbon Dioxide 29 mmol/L (22-30) 12/24/20 01:06 Anion Gap 13 mmol/L 12/24/20 01:06 BUN 14 mg/dL (9-20) 12/24/20 01:06 Creatinine 0.8 mg/dL (0.8-1.3) 12/24/20 01:06 Estimated GFR > 60 ml/min 12/24/20 01:06 BUN/Creatinine Ratio 18 % 12/24/20 01:06 Glucose 74 mg/dL (75-100) L 12/24/20 01:06 Hemoglobin A1c 5.5 % (4-6) 12/24/20 01:06 Lactic Acid 0.80 mmol/L (0.7-2.0) 12/23/20 15:32 Calcium 8.8 mg/dL (8.4-10.2) 12/24/20 01:06 Magnesium 1.80 mg/dL (1.7-2.3) 12/23/20 16:59 Total Bilirubin 0.80 mg/dL (0.1-1.2) 12/24/20 01:06 AST 26 units/L (5-40) 12/24/20 01:06 ALT 52 units/L (7-56) 12/24/20 01:06 Alkaline Phosphatase 93 units/L (35-129) 12/24/20 01:06 Total Creatine Kinase 233 units/L (55-170) H 12/23/20 16:59 Total Protein 7.1 g/dL (6.3-8.2) 12/24/20 01:06 Albumin 3.6 g/dL (3.9-5) L 12/24/20 01:06 Albumin/Globulin Ratio 1.0 % 12/24/20 01:06 TSH 0.847 mlU/mL (0.270-4.200) 12/23/20 17:52 Urine Color Yellow (Yellow) 12/23/20 23:59 Urine Turbidity Clear (Clear) 12/23/20 23:59 Urine pH 6.0 (5.0-7.0) 12/23/20 23:59 Ur Specific [place] 1.029 (1.003-1.030) 12/23/20 23:59 Urine Protein <15 mg/dl mg/dL (Negative) 12/23/20 23:59 Urine Glucose (UA) Neg mg/dL (Negative) 12/23/20 23:59 Urine Ketones Tr mg/dL (Negative) 12/23/20 23:59 Urine Blood Neg (Negative) 12/23/20 23:59 Urine Nitrite Neg (Negative) 12/23/20 23:59 Urine Bilirubin Neg (Negative) 12/23/20 23:59 Urine Urobilinogen < 2.0 mg/dL (<2.0) 12/23/20 23:59 Ur Leukocyte Esterase Neg (Negative) 12/23/20 23:59 Urine WBC (Auto) 1.0 /HPF (0.0-6.0) 12/23/20 23:59 Urine RBC (Auto) 1.0 /HPF (0.0-6.0) 12/23/20 23:59 Urine Mucus Few /HPF 12/23/20 23:59 Salicylates < 0.3 mg/dL (2.8-20.0) L 12/23/20 17:52 Urine Opiates Screen Presumptive negative 12/23/20 23:59 Urine Methadone Screen Presumptive negative 12/23/20 23:59 Acetaminophen 5.0 ug/mL (10.0-30.0) L 12/23/20 17:52 Ur Barbiturates Screen Presumptive negative 12/23/20 23:59 Ur Phencyclidine Scrn Presumptive negative 12/23/20 23:59 Ur Amphetamines Screen Presumptive positive 12/23/20 23:59 U Benzodiazepines Scrn Presumptive negative 12/23/20 23:59 Urine Cocaine Screen Presumptive negative 12/23/20 23:59 U Marijuana (THC) Screen Presumptive negative 12/23/20 23:59 Drugs of Abuse Note Disclamer 12/23/20 23:59 Syphilis IgG Antibody Nonreactive (NonReactive) 12/23/20 17:52 Hepatitis A IgM Ab Non-reactive (NonReactive) 12/23/20 17:52 Hep Bs Antigen Non-reactive (Negative) 12/23/20 17:52 Hep B Core IgM Ab Non-reactive (NonReactive) 12/23/20 17:52 Hepatitis C Antibody Non-reactive (NonReactive) 12/23/20 17:52 Microbiology: Microbiology 12/23/20 17:49 Peripheral/Venous Blood Culture - Preliminary NO GROWTH AFTER 24 HOURS 12/23/20 17:52 Peripheral/Venous Blood Culture - Preliminary NO GROWTH AFTER 24 HOURS [place]ak/IV: Voiding Method Toilet Active Medications - Current Medications Current Medications: Generic Name Dose Route Start Last Admin Trade Name Freq PRN Reason Stop Dose Admin Acetaminophen 650 mg 12/24/20 00:44 Acetaminophen 325 Mg Tab PO Q4H PRN Pain MILD(1-3)/Fever >100.5/MENA Enoxaparin Sodium 70 mg 12/24/20 22:00 12/25/20 09:58 Enoxaparin 80 Mg/1 Ml Inj 1 mg/kg (70 mg) 70 mg SUB-Q Administration Q12HR REEMA Protocol Famotidine 20 mg 12/24/20 10:00 12/25/20 09:58 Famotidine 20 Mg Tab PO 20 mg BID REEMA Administration Hydromorphone HCl 0.5 mg 12/23/20 21:30 12/24/20 00:55 Hydromorphone 1 Mg/1 Ml Inj IV 0.5 mg Q3H PRN Administration Pain , Severe (7-10) Vancomycin HCl 1 gm in 250 mls @ 166.667 mls/hr 12/25/20 05:00 12/25/20 04:59 Vancomycin/Ns 1 Gm/250 Ml IV 166.667 mls/hr Q12H REEMA Administration Metoclopramide HCl 10 mg 12/24/20 00:44 Metoclopramide 10 Mg/2 Ml Inj IV Q6H PRN Nausea And Vomiting Ondansetron HCl 4 mg 12/24/20 00:44 Ondansetron 4 Mg/2 Ml Inj IV Q8H PRN Nausea And Vomiting Oxycodone/Acetaminophen 1 tab 12/24/20 00:44 12/24/20 02:32 Oxycodone /Acetaminophen 5-325mg Tab PO 1 tab Q6H PRN Administration Pain, Moderate (4-6) Sodium Chloride 10 ml 12/24/20 10:00 12/25/20 09:59 Sodium Chloride 0.9% 10 Ml Flush Syringe IV 10 ml BID REEMA Administration Sodium Chloride 10 ml 12/24/20 00:44 Sodium Chloride 0.9% 10 Ml Flush Syringe IV PRN PRN LINE FLUSH
--- NOTE | 2020-12-25 12:48 | Progress Note ---
Assessment and Plan ID labs: Blood culture 12/23/2020 no growth COVID-19 PCR pending HIV pending Viral hepatitis panel negative Syphilis IgG negative A/P: 35-year-old male past medical history asthma, methamphetamine abuse admitted for right lower extremity cellulitis #Acute sepsis: Present with tachycardia and leukocytosis. Likely secondary to RLE cellulitis #RLE cellulitis: With associated DVT and history of IVDA. #DVT: Anticoagulation per primary. #High risk sexual behavior/IVDA: Intermittent condom use, HIV pending. Used to be on PrEP in the past. #Penile ulcer: Syphilis IgG negative, but doesn't necessarily have to be positive for primary syphilis, recommend empiric treatment. Recs: IV ceftriaxone 2 g daily + PO Azithromycin 1 gm x 1 IM benzathine penicillin 2,400,000 units ordered x1 Continue IV vancomycin for now Follow-up HIV awaiting clinical improvement, anticipate discharge tomorrow from ID standpoint Hever Underwood MD, FACP [facility] O: [phone] F: [phone] Subjective Date of service: 12/25/20 Interval history: No fever. Right leg swelling is improving. Penile sore present. Objective - Exam Narrative Exam: Physical Exam: Constitutional: Alert, cooperative. No acute distress Head, Ears, Nose: Normocephalic, atraumatic. External ears, nose normal Eyes: Conjunctivae/corneas clear. No icterus. No ptosis. Neck: Supple, no meningeal signs Cardiovascular: S1, S2 normal. Respiratory: Good air entry, clear to auscultation bilaterally : Penile sore present, nonpainful GI: Soft, non-tender; bowel sounds normal. No peritoneal signs Musculoskeletal: RLE with mild swelling and tenderness, erythema seems improved. Skin: No rash or abscess Hem/Lymphatic: No palpable cervical or supraclavicular nodes. No lymphangitis Psych: Mood ok. Affect normal Neurological: Awake, alert, oriented. No gross abnormality - Constitutional Vitals: Vital Signs Temp Pulse Resp BP Pulse Ox 98.8 F 89 20 108/7 90 12/25/20 11:05 12/25/20 11:05 12/25/20 11:05 12/25/20 11:05 12/25/20 11:05 Temperature -Last 24 Hours Temperature 98.8 F Temperature 98.7 F Temperature 99.5 F Temperature 98.8 F - Labs CBC & Chem 7: 12/24/20 01:06 12/24/20 01:06
[2020-12-25] MEDS ORDERED: AZITHROMYCIN 250 MG TAB PO NR (13:00)
[2020-12-25] MEDS: cefTRIAXone/NS 2 GM/100 ML 2 GM/100 ML BAG IV SCH (13:23)
[2020-12-25] MEDS ORDERED: PENICILLIN G BENZATHINE 1.2 MILLION UNIT/2 ML INJ IM NR (13:30)
[2020-12-25] MEDS ORDERED: diphenhydrAMINE 50 MG/ML VIAL IV PRN (19:31)
[2020-12-26 03:06] LABS: Hematocrit 36.7 % (35.5-45.6); Hemoglobin 12.1 gm/dl (11.8-15.2); Mean Corpuscular HGB Conc 33 % (32-34); Mean Corpuscular Volume 83 fl (84-94); Platelet Count 312 K/mm3 (140-440); Red Cell Distribution Width 13.3 % (13.2-15.2)
[2020-12-26 03:20] LABS: INR 1.03 (0.87-1.13)
[2020-12-26 03:21] LABS: Partial Thromboplastin Time 38.2 Sec. (24.2-36.6)
[2020-12-26] MEDS: FAMOTIDINE 20 MG TAB PO SCH (09:30)
[2020-12-26] MEDS: cefTRIAXone/NS 2 GM/100 ML 2 GM/100 ML BAG IV SCH (09:30)
[2020-12-26] MEDS: VANCOMYCIN/NS 1 GM/250 ML 1 GM/250 ML BAG IV SCH (09:35)
[2020-12-26] MEDS ORDERED: APIXABAN 5 MG TAB PO SCH (10:00)
--- NOTE | 2020-12-26 14:35 | Progress Note ---
Assessment and Plan ID labs: Blood culture 12/23/2020 no growth COVID-19 PCR pending HIV pending Viral hepatitis panel negative Syphilis IgG negative A/P: 35-year-old male past medical history asthma, methamphetamine abuse admitte d for right lower extremity cellulitis #Acute sepsis: Present with tachycardia and leukocytosis. Likely secondary to RLE cellulitis #RLE cellulitis: With associated DVT and history of IVDA. #DVT: Anticoagulation per primary. #High risk sexual behavior/IVDA: Intermittent condom use, HIV pending. Used to be on PrEP in the past. #Penile ulcer: Syphilis IgG negative, but doesn't necessarily have to be positive for primary syphilis, gave empiric treatment with IM benzathine penicillin 2,400,000 units x1. Recs: OK for discharge on PO Keflex 500 mg QID + PO doxycyline 100 mg BID x 7 days Follow-up HIV ID clinic follow up PRN Hever Underwood MD, FACP [facility] O: [phone] F: [phone] Subjective Date of service: 12/26/20 Interval history: No fever. Right leg swelling is improving. Penile sore present, no worsening. Hoping to go home. Objective - Exam Narrative Exam: Physical Exam: Constitutional: Alert, cooperative. No acute distress Head, Ears, Nose: Normocephalic, atraumatic. External ears, nose normal Eyes: Conjunctivae/corneas clear. No icterus. No ptosis. Neck: Supple, no meningeal signs Cardiovascular: S1, S2 normal. Respiratory: Good air entry, clear to auscultation bilaterally : Penile sore present, nonpainful GI: Soft, non-tender; bowel sounds normal. No peritoneal signs Musculoskeletal: RLE with mild swelling and tenderness, erythema seems improved. Skin: No rash or abscess Hem/Lymphatic: No palpable cervical or supraclavicular nodes. No lymphangitis Psych: Mood ok. Affect normal Neurological: Awake, alert, oriented. No gross abnormality - Constitutional Vitals: Vital Signs Temp Pulse Resp BP Pulse Ox 98.0 F 85 18 112/66 99 12/26/20 05:32 12/26/20 05:32 12/26/20 05:32 12/26/20 05:32 12/26/20 05:32 Temperature -Last 24 Hours Temperature 98.0 F Temperature 98.7 F Temperature 98.8 F - Labs CBC & Chem 7: 12/26/20 02:50 12/26/20 02:50 Labs: Abnormal lab results 12/26/20 12/26/20 12/26/20 Range/Units 02:50 02:50 02:50 MCV 83 L (84-94) fl APTT 38.2 H (24.2-36.6) Sec. Creatinine 0.7 L (0.8-1.3) mg/dL
--- NOTE | 2020-12-26 15:36 | Discharge Summary ---
Providers - Providers Date of Admission: 12/25/20 10:49 Date of discharge: 12/26/20 Attending physician: TON SANTIAGO 12/23/20 17:30 Consult to Physician [CONS] Urgent Comment: Dr. Bone spoke to Dr. Bradley @ 16:41- [facility] Consulting Provider: PEARL BONE Physician Instructions: Reason For Exam: covid long haul, fever, tachycardia Primary care physician: [facility] Hospitalization Condition: Good Pertinent studies: Lower extremity venous Doppler, CTA chest Hospital course: Brief history 35-year-old male patient was admitted with right lower extremity trauma, Swelling and tenderness, noted to have cellulitis, venous Doppler study positive for DVT. Patient was placed on empiric antibiotics, started on Lovenox which was transitioned to Eliquis from today. patient COVID-19 test is negative. CTA chest negative for PE. Patient was also noted to have been an ulcer but syphilis IgG antibody was negative. But ID decided to treat for primary syphilis as because antibody titer does not need to be positive for the diagnosis of primary syphilis. Patient was also tested for HIV and his result was pending on discharge. ID recommended to discharge on PO Keflex 500 mg QID + PO doxycyline 100 mg BID x 7 days. Patient was recommended to continue on his anticoagulation at least for 3 months until its get stopped by his PCP. He was also recommended to follow-up his pending HIV test as outpatient. Patient will also need hypercoagulability work-up as outpatient. He verbalized understanding and was discharged home in stable condition with outpatient follow-up. Disposition: TO HOME OR SELFCARE Final Discharge Diagnosis (Prints w/discharge instructions): Acute sepsis, right lower extremity cellulitis, RLE DVT, high risk sexual behavior/IVDA, penile ulcer likely from syphilis -completed treatment, Methamphetamine use. Time spent for discharge: 34 minutes Core Measure Documentation - Palliative Care Palliative Care/ Comfort Measures: Not Applicable - Core Measures Any of the following diagnoses?: none Exam - Physical Exam Narrative exam: General appearance: Present: no acute distress, well-nourished - EENT Eyes: Present: PERRL, EOM intact - Neck Neck: Present: supple, normal ROM - Respiratory Respiratory effort: normal Respiratory: bilateral: diminished, rales, negative: rhonchi, wheezing - Cardiovascular Rhythm: regular Heart Sounds: Present: S1 & S2 - Extremities Extremities: no ischemia, abnormal (Right ankle mild swelling, erythema) - Abdominal General gastrointestinal: soft, non-tender, non-distended - Integumentary Integumentary: Present: clear, warm - Psychiatric Psychiatric: appropriate mood/affect, cooperative - Neurologic Neurologic: CNII-XII intact, moves all extremities - Constitutional Vitals: Temp Pulse Resp BP Pulse Ox 98.0 F 85 18 112/66 99 12/26/20 05:32 12/26/20 05:32 12/26/20 05:32 12/26/20 05:32 12/26/20 05:32 Plan Activity: advance as tolerated Weight Bearing Status: Weight Bear as Tolerated Diet: low fat, low salt Additional Instructions: Please continue PO Keflex 500 mg QID + PO doxycyline 100 mg BID x 7 days. Continue on Eliquis 10 mg twice daily for 1 week then 5 mg twice daily at least for 3 months until its get stopped by your PCP. follow-up HIV test result as outpatient. Will also need hypercoagulability work-up as outpatient. Abstinence from substance abuse -methamphetamine Follow up with: PRIMARY CARE, [Primary Care Provider] - 3-5 Days PUMA CHUN MD [Staff Physician] - 7 Days MYRNA BORRERO MD [Staff Physician] - 7 Days Prescriptions: Doxycycline Hyclate [Doxycycline Hyclate TAB] 100 mg PO Q12HR #14 tab Apixaban [Eliquis] 5 mg PO Q12HR #60 tablet cephALEXin [Keflex] 500 mg PO Q6HR #28 capsule
[2020-12-26 17:30] VITALS: BP 111/68
[2021-01-02] MEDS ORDERED: APIXABAN 5 MG TAB PO SCH (10:00)
== END 2020-12-26 18:15 | disposition home or self-care (01) | DRG 872 ==
LOC: ED 14:14 → 3A 20:53 → OBSVTOIN 12-25 10:49
PROVIDERS: ADMIT Internal Medicine; ATTEND Internal Medicine
DX: A41.9 Sepsis, unspecified organism (principal); I82.411 Acute embolism and thrombosis of right femoral vein; L03.115 Cellulitis of right lower limb; F15.10 Other stimulant abuse, uncomplicated; A51.0 Primary genital syphilis; F17.200 Nicotine dependence, unspecified, uncomplicated; J45.909 Unspecified asthma, uncomplicated; Z20.822 Contact with and (suspected) exposure to COVID-19; A51.2 Primary syphilis of other sites; A53.9 Syphilis, unspecified; Z86.16 Personal history of COVID-19; Z72.51 High risk heterosexual behavior; Z87.09 Personal history of other diseases of the respiratory system
CPT/HCPCS: 36415; 71275; 80053; 80074; 80307; 80320; 81001; 82140; 82550; 82565; 83036; 83735; 84443; 85025; 85027; 85610; 85730; 86592; 86689; 87040; 96361; 96365; 96372; 96375; 96376; G0378; G0480; J0561; J0696; J1170; J1200; J1650; J1956; J3360; J3370; J7040; J7120; Q9967; U0003